=== PATIENT | female | born 2000 | race Caucasian/White ===

== ENCOUNTER 2021-12-23 20:39 | Emergency (ER) | payer OTHER ==
[~2021-12-23] VITALS: Ht 160 cm; Wt 75.9 kg
[2021-12-23 20:48] VITALS: TEMP 97.5
[2021-12-23 23:11] VITALS: BP 116/73; PULSE 70
== END 2021-12-23 23:10 | disposition home or self-care (01) ==
LOC: COL.ER 20:39
DX: R51.9 Headache, unspecified (principal); Z20.822 Contact with and (suspected) exposure to COVID-19
CPT/HCPCS: J0780; J1885